=== PATIENT | female | born 1940 | race Caucasian/White ===

== ENCOUNTER → 2016-08-03 | Outpatient (CLI) | payer MEDICARE, BC | LOC: GMAL 14:18 | PROVIDERS: ATTEND Family Medicine | DX: R79.89 Other specified abnormal findings of blood chemistry (principal) ==

== ENCOUNTER → 2016-11-29 | Outpatient (CLI) | payer MEDICARE | END | disposition home or self-care (01) | LOC: GMAL 11:39 | PROVIDERS: ATTEND Family Medicine | DX: R79.89 Other specified abnormal findings of blood chemistry (principal) ==

== ENCOUNTER → 2016-12-12 | Outpatient (CLI) | payer MEDICARE, BC ==
--- NOTE | 2016-12-12 13:52 | MAM ---
EXAM DESCRIPTION: Screening Mammogram,Bilateral CLINICAL HISTORY: 76 years, Female, Screening mammogram COMPARISON: December 02, 2015 TECHNIQUE: CC and MLO digital mammograms with computer aided detection. FINDINGS: The breast parenchyma is heterogeneously dense which may decrease the sensitivity of mammography. There is no dominant mass nor any suspicious microcalcifications. Benign microcalcifications are present. IMPRESSION: BI-RADS 2: BENIGN FOLLOW-UP: Routine mammography screening. Electronically signed by: Mynor Seaman MD 12/12/2016 1:51 PM CDT
== END | disposition home or self-care (01) ==
LOC: MAMMO 10:51
PROVIDERS: ATTEND Family Medicine
DX: Z12.31 Encounter for screening mammogram for malignant neoplasm of breast (principal)

== ENCOUNTER → 2017-10-06 | Outpatient (CLI) | payer MEDICARE, BC ==
--- NOTE | 2017-10-08 12:43 | MRI ---
EXAM DESCRIPTION: Lumbar Spine w/o Contrast MRI. CLINICAL HISTORY: LOW BACK PAIN COMPARISON: MRI noncontrast lumbar spine February 07, 2012. TECHNIQUE: Multiplanar, multiple standard sequences, non contrast MRI, lumbar spine. FINDINGS: L5-S1: Disc desiccation and minimal disc space loss. Grade 1 anterolisthesis with posterior disc uncovered and 5 mm bulge not abutting the thecal sac or descending nerves. Moderate canal narrowing. Mild bilateral foraminal narrowing. Bilateral facet arthrosis and flavum ligament hypertrophy. L4-5: Anterior disc bulge and endplate ridging. Posterior disc complex bulge encroaching on the anterior thecal sac. Moderate to severe left neural foraminal narrowing and mild to moderate right neural foraminal narrowing. Diffuse Modic type II endplate reactive changes. Bilateral mild facet arthrosis and flavum ligament hypertrophy. Mild canal narrowing. L3-4: Severe disc desiccation and disc space loss. Diffuse Modic type II endplate reactive changes. Anterior bulging and endplate ridging more to the right of midline. Facet arthrosis and flavum ligament hypertrophy more on the right. Moderate right neural foraminal narrowing. Mild left neural foraminal narrowing. L2-3: Disc space almost absent. Minimal anterior disc remnant bulge with endplate ridging. Schmorl's nodes in the endplates. Minimal posterior endplate disc bulge. Diffuse Modic type III endplate reactive changes. Mild right foraminal narrowing and left foramen unremarkable. Mild canal narrowing. L1-2: Disc desiccation and minimal disc space loss. Tiny anterior bulge. Superior L2 endplate Schmorl's node versus old endplate depression. Posterior minimal facet arthrosis and flavum ligament hypertrophy. Tiny posterior disc bulge and mild canal narrowing. Bilateral foramina are patent. Minimal Modic type II endplate reactive changes. T12-L1: Moderate disc space loss and endplate erosion superior and inferior with Modic type II endplate reactive changes. Anterior disc bulge and endplate ridging. Posterior disc osteophyte complex bulge 4 to 5 mm in the midline and into the left foramen. Moderate to severe canal narrowing and mild right foraminal narrowing. Moderate left foraminal narrowing. Conus terminates just above this level. Paravertebral soft tissues paraspinal muscle atrophy. No soft tissue mass.. Chronic L1-L4 levoscoliosis. Normal marrow signal in the remaining vertebral bodies and the posterior elements. Vertebral bodies are not compressed at any level. IMPRESSION: 1. Chronic multilevel spondylosis disc desiccation and bulge, marginal osteophytes, canal and neural foraminal narrowing. Chronic levoscoliosis. 2. Moderate to severe left foraminal narrowing at L4-5 and mild to moderate right foraminal narrowing. Correlate for L4 radiculopathy. Progressed since the prior study. 3. Severe disc desiccation and disc space loss at L3-4. Moderate right foraminal narrowing. Correlate for right L3 radiculopathy. 4. disc space almost absent at L2-3. Diffuse advanced spondylosis. Progressed since the prior study. 5. Moderate spondylosis and posterior disc osteophyte complex bulge T12-L1 in the midline into the left foramen with moderate left paracentral canal narrowing. Progressed since the prior study. 6. Grade 1 anterolisthesis L5-S1 progressed since the prior study with moderate canal narrowing. Electronically signed by: Jus Angulo MD 10/08/2017 12:42 PM CDT
== END ==
LOC: MRI 10:00
PROVIDERS: ATTEND Family Medicine
DX: M47.896 Other spondylosis, lumbar region (principal); M41.86 Other forms of scoliosis, lumbar region; M43.16 Spondylolisthesis, lumbar region

== ENCOUNTER → 2018-01-09 | Outpatient (CLI) | payer MEDICARE, BC | LOC: GMAL 11:12 | PROVIDERS: ATTEND Family Medicine | DX: D51.3 Other dietary vitamin B12 deficiency anemia (principal); E55.9 Vitamin D deficiency, unspecified ==

== ENCOUNTER → 2018-05-21 | Outpatient (CLI) | payer MEDICARE, BC | LOC: GMAL 11:10 | PROVIDERS: ATTEND Family Medicine | DX: E03.9 Hypothyroidism, unspecified (principal) ==

== ENCOUNTER → 2018-05-28 | Outpatient (CLI) | payer MEDICARE, BC ==
--- NOTE | 2018-05-29 20:17 | MAM ---
EXAM DESCRIPTION: 3D Screening BILATERAL : Digital Mammography. CLINICAL HISTORY: 78 years Female SCREENING . No complaints. No personal or family history of breast cancer. Childbirth. Postmenopausal. Currently on HRT.. Lifetime risk of developing breast cancer (Tyrer-Cuzick model)(%): 2.4. COMPARISON: 2-D digital screening bilateral mammography 12/12/2016. TECHNIQUE: Bilateral CC and MLO projection full-field images, Digital tomosynthesis mammographic technique. Bilateral digital 2-D full-field MLO images. CAD not utilized. FINDINGS: The breast parenchymal density pattern is: Scattered areas of fibroglandular density. No skin thickening or nipple retraction. Bilateral solitary microcalcifications. Bilateral vascular calcifications. Focal asymmetry in the posterior third of the left breast slightly greater than 1 cm in diameter, approximately 4:00 position and approximately 9 cm from the nipple. Not associated with calcifications. Interpreted to be slightly larger than on the prior study.. No new focal, stellate mass or density, focal asymmetry , and no suspicious microcalcifications right breast. Taking into account, differences in mammographic technique. IMPRESSION: BI-RADS CATEGORY: 0 - INCOMPLETE- Need additional imaging evaluation. FOLLOW-UP: Recall for additional imaging: Targeted left breast ultrasound of the region of interest. Digital diagnostic mammography if indicated by ultrasound images.. Written communication concerning the IMPRESSION and Follow-up, will be mailed to the patient and referring health care provider. Electronically signed by: Jus Angulo MD 05/29/2018 8:16 PM CDT
== END ==
LOC: AMB 11:00
PROVIDERS: ATTEND Family Medicine
DX: Z12.31 Encounter for screening mammogram for malignant neoplasm of breast (principal)

== ENCOUNTER → 2018-06-07 | Outpatient (CLI) | payer MEDICARE, BC ==
--- NOTE | 2018-06-07 16:31 | US ---
EXAM DESCRIPTION: Breast,Left: Ultrasound CLINICAL HISTORY: 78 yearsFemaleABNORMAL MAMMOGRAM COMPARISON: Digital screening tomosynthesis bilateral breast 05/28/2018. TECHNIQUE: Transcutaneous scanning of the left breast utilizing kim-scale and Doppler modes. Scanning performed by the manager immunology and Dr. Angulo. FINDINGS: Scanning of the lower outer quadrant of the left breast. Mostly fatty echotexture with minimal fibroglandular tissue changes. Heterogeneous mass with cystic and solid components 9 cm from the nipple with minimal vascularity. Parallel orientation and mixed shadowing and enhancing posterior features. No definite calcifications. Differential includes lymph node, fibroadenoma, or old hematoma or scar. Follow-up diagnostic mammography was not performed. IMPRESSION: BI-RADS CATEGORY: 3 - PROBABLY BENIGN. Management: Short interval (6-month) diagnostic left breast digital mammography and targeted left breast ultrasound.. The FINDINGS and the FOLLOW-UP plan were reviewed in person with the patient after the examination. Written communication explaining the IMPRESSION and FOLLOW-UP will be mailed to the patient and referring care provider. Electronically signed by: Jus Angulo MD 06/07/2018 4:30 PM [facility]
== END ==
LOC: MAMMO 10:00
PROVIDERS: ATTEND Family Medicine
DX: R92.8 Other abnormal and inconclusive findings on diagnostic imaging of breast (principal)

== ENCOUNTER → 2018-08-09 | Outpatient (CLI) | payer MEDICARE, BC | LOC: GMAL 11:44 | PROVIDERS: ATTEND Family Medicine | DX: E03.9 Hypothyroidism, unspecified (principal) ==

== ENCOUNTER 2018-09-27 09:52 | Emergency (ER) | payer MEDICARE ==
[2018-09-27 10:09] VITALS: TEMP 98.4
[2018-09-27] MEDS ORDERED: PENICILLIN BENZATHINE 1.2 MU 1.2 MU/2 ML SYG IM ONE (10:16)
[2018-09-27] MEDS ORDERED: OSELTAMIVIR 75 MG CAP PO ONE (10:16)
--- NOTE | 2018-09-27 10:19 | ED.PDOC ---
History of Present Illness - General Chief Complaint: General Stated Complaint: cough, sore throat, headache Time Seen by Provider: 09/27/18 10:05 Source: patient Exam Limitations: no limitations - History of Present Illness Initial Comments: the patient states 8-year-old female presenting to the emergency room secondary to mild cough, runny nose, sore throat, low-grade fever, mild headache and body aches. Her tested positive for both strep and flu 2 days ago. He is on Tamiflu and has received treatment for strep. No shortness of breath. Vital signs appear stable. No evidence of any pharyngeal abscess at this time. The patient is pleasant and cooperative and in no distress. Timing/Duration: 24 hours Severity: mild Improving Factors: nothing Worsening Factors: nothing Associated Symptoms: cough, fever/chills, headaches, loss of appetite, malaise, nausea/vomiting Allergies/Adverse Reactions: Allergies NO KNOWN ALLERGY Allergy (Verified 03/27/13 12:42) Home Medications: Ambulatory Orders Cyanocobalamin [B-12] 3,000 mcg PO DAILY 01/14/14 Digoxin 0.25 mg PO DAILY 01/14/14 Estradiol 0.5 mg PO DAILY 01/14/14 HYDROcodone 5MG/APAP 325MG [Shaniko 5/325] 1 tab PO PRN 01/14/14 Levothyroxine Sodium 137 mcg PO DAILY 01/14/14 Meloxicam 15 mg PO DAILY 01/14/14 Metformin HCl 500 mg PO TID 01/14/14 Olmesartan Medoxomil-Hydrochlo [Benicar Hct 40-12.5 mg] 1 tab PO DAILY 01/14/14 [place]-3 Fatty Acids [Fish Oil 1200 mg] 1 cap PO DAILY 01/14/14 Simvastatin 80 mg PO DAILY 01/14/14 Vitamin D & K [D3 + K2 Dots 1000-90 Unit-Mcg] 1 tab PO DAILY 01/14/14 Warfarin Sodium 5 mg PO DAILY 01/14/14 Insulin Nph 0 units INJ DAILY 01/15/14 Insulin Regular (Human) [Humulin R] 100 unit IJ DAILY 01/15/14 Lisinopril & Hydrochlorothiazi [Lisinopril/Hctz 20-25 mg] 1 tab PO BID #0 01/22/14 Metoprolol Tartrate [Lopressor] 100 mg PO BID #60 tab 06/25/14 Oseltamivir Capsule [Tamiflu] 75 mg PO BID 5 Days #10 capsule 09/27/18 Review of Systems - Review of Systems Constitutional: States: fever, malaise EENTM: States: nose congestion, throat pain Respiratory: States: cough Cardiology: States: no symptoms reported Gastrointestinal/Abdominal: States: no symptoms reported Genitourinary: States: no symptoms reported Musculoskeletal: States: see HPI Skin: States: no symptoms reported Neurological: States: headache Endocrine: States: no symptoms reported All other Systems: No Change from Baseline Past Medical History (General) - Patient Medical History Hx Seizures: No Hx Stroke: No Hx Dementia: No Hx Asthma: No Hx of COPD: No Hx Cardiac Disorders: Yes - atrial fibrillation Hx Congestive Heart Failure: No Hx Pacemaker: No Hx Hypertension: Yes Hx Thyroid Disease: No Hx Diabetes: Yes Hx Gastroesophageal Reflux: Yes Hx Renal Disease: No Hx Cancer: No Hx of HIV: No Hx Hepatitis C: No Hx MRSA: No Surgical History: cholecystectomy, Hysterectomy - Vaccination History Hx Influenza Vaccination: Yes - 2017 Hx Pneumococcal Vaccination: Yes - 2017 - Social History Hx Tobacco Use: No Hx Alcohol Use: No Hx Substance Use: No Hx Substance Use Treatment: No Hx Depression: No Hx Physical Abuse: No Hx Emotional Abuse: No Family Medical History - Family History Mother Family History: No Known Physical Exam - Physical Exam General Appearance: Alert, Comfortable, No apparent distress Eye Exam: bilateral normal Ears, Nose, Throat: hearing grossly normal, nasal congestion, pharyngeal erythema Neck: full range of motion, supple Respiratory: lungs clear, normal breath sounds, no respiratory distress, no accessory muscle use Cardiovascular/Chest: normal peripheral pulses, regular rate, rhythm, no edema Peripheral Pulses: radial,right: 2+, radial,left: 2+ Gastrointestinal/Abdominal: non tender, soft Rectal Exam: deferred Back Exam: no CVA tenderness, no vertebral tenderness Extremity: non-tender, normal inspection, no pedal edema, normal capillary refill Neurologic: clinical medical transcriptionist II-XII nml as tested, alert, normal mood/affect, oriented x 3 Skin Exam: normal color Comments: Vital Signs - 24 hr 09/27/18 10:03 Temperature 98.4 F Pulse Rate [ 88 left brachial] Respiratory 24 Rate Blood Pressure 153/88 [left brachial] O2 Sat by Pulse 99 Oximetry Progress - Progress Progress: 09/27/18 10:18 the patient is 78-year-old female presenting with sore throat as well as symptoms of an upper respiratory tract infection. She has had significant exposure to both flu and strep being that her significant other just tested positive for both. She is going to be treated empirically with a shot of Bicillin LA and 5 days of Tamiflu. She needs to keep herself well hydrated. Motrin can be used to help reduce symptoms. ER warnings were given. Keep routine follow-up with primary care doctor otherwise. Departure - Departure Clinical Impression: Influenza, Strep throat Disposition: Discharge to Home or Self Care Condition: Fair Departure Forms: ED Discharge - Pt. Copy, Patient Portal Self Enrollment Instructions: Flu, Adult (DC), Sore Throat, Adult (DC) Diet: regular diet Activity: increase activity as tolerated Referrals: Ishaan Valencia III, MD [Primary Care Provider] - 1-2 Weeks Prescriptions: Oseltamivir Capsule [Tamiflu] 75 mg PO BID 5 Days #10 capsule Home Medications: Ambulatory Orders Cyanocobalamin [B-12] 3,000 mcg PO DAILY 01/14/14 Digoxin 0.25 mg PO DAILY 01/14/14 Estradiol 0.5 mg PO DAILY 01/14/14 HYDROcodone 5MG/APAP 325MG [Shaniko 5/325] 1 tab PO PRN 01/14/14 Levothyroxine Sodium 137 mcg PO DAILY 01/14/14 Meloxicam 15 mg PO DAILY 01/14/14 Metformin HCl 500 mg PO TID 01/14/14 Olmesartan Medoxomil-Hydrochlo [Benicar Hct 40-12.5 mg] 1 tab PO DAILY 01/14/14 [place]-3 Fatty Acids [Fish Oil 1200 mg] 1 cap PO DAILY 01/14/14 Simvastatin 80 mg PO DAILY 01/14/14 Vitamin D & K [D3 + K2 Dots 1000-90 Unit-Mcg] 1 tab PO DAILY 01/14/14 Warfarin Sodium 5 mg PO DAILY 01/14/14 Insulin Nph 0 units INJ DAILY 01/15/14 Insulin Regular (Human) [Humulin R] 100 unit IJ DAILY 01/15/14 Lisinopril & Hydrochlorothiazi [Lisinopril/Hctz 20-25 mg] 1 tab PO BID #0 01/22/14 Metoprolol Tartrate [Lopressor] 100 mg PO BID #60 tab 01/22/14 Oseltamivir Capsule [Tamiflu] 75 mg PO BID 5 Days #10 capsule 09/27/18 Additional Instructions: the patient is 78-year-old female presenting with sore throat as well as symptoms of an upper respiratory tract infection. She has had significant exposure to both flu and strep being that her significant other just tested positive for both. She is going to be treated empirically with a shot of Bicillin LA and 5 days of Tamiflu. She needs to keep herself well hydrated. Motrin can be used to help reduce symptoms. ER warnings were given. Keep routine follow-up with primary care doctor otherwise.
[2018-09-27] MEDS ORDERED: IBUPROFEN 200 MG TAB PO ONE (10:32)
[2018-09-27] MEDS ORDERED: IBUPROFEN 200 MG TAB ONE (10:32)
[2018-09-27] MEDS ORDERED: ONDANSETRON ODT 8 MG TAB ONE (10:35)
[2018-09-27] MEDS ORDERED: ONDANSETRON ODT 8 MG TAB SL ONE (10:38)
[2018-09-27 11:23] VITALS: BP 111/76; O2SAT 97
== END 2018-09-27 11:05 | disposition home or self-care (01) ==
LOC: ER 09:52
DX: J11.1 Influenza due to unidentified influenza virus with other respiratory manifestations (principal); J02.0 Streptococcal pharyngitis; I48.91 Unspecified atrial fibrillation; I10 Essential (primary) hypertension; E11.9 Type 2 diabetes mellitus without complications; K21.9 Gastro-esophageal reflux disease without esophagitis; Z79.4 Long term (current) use of insulin; Z79.899 Other long term (current) drug therapy; Z79.01 Long term (current) use of anticoagulants

== ENCOUNTER → 2018-12-12 | Outpatient (CLI) | payer MEDICARE ==
--- NOTE | 2018-12-13 18:03 | MAM ---
EXAM DESCRIPTION: 3D Diagnostic, Left (accession [id number]), Breast,Left (accession [id number]): Ultrasound CLINICAL HISTORY: 78 yearsFemaleABNORMAL MAMMOGRAM. Complex cyst lateral left breast. COMPARISON: Targeted left breast ultrasound 06/07/2018. Bilateral screening digital breast tomosynthesis 05/28/2018. TECHNIQUE: Left MLO projection full-field images, digital mammographic tomosynthesis technique. Left 2-D digital full-field MLO images. CAD not available. Transcutaneous scanning of the left breast utilizing kim-scale and Doppler modes. Scanning performed by the vp digital marketing social media and crm and Dr. Angulo. FINDINGS: The breast parenchymal density pattern is: Scattered areas of fibroglandular density. No skin thickening or nipple retraction solitary microcalcifications and vascular calcifications again noted. Also again seen is focal asymmetry at the 4:00 position approximately 9 cm from the nipple. Stable appearance since the prior study.. No new focal, stellate mass or density, focal asymmetry , and no suspicious microcalcifications left breast. Ultrasound: Scanning of the lower outer quadrant of the left breast from the nipple to 9 cm posterior. Make sure of fatty and fibroglandular tissues. 9 cm from the nipple is a complex multicystic structure with microlobulated margins and no vascularity. Wider than tall orientation and predominantly posterior acoustic enhancement with minimal posterior shadowing. Dimensions are 9.4 x 6.9 x 4.5 mm with no significant change in size or appearance since the prior study. IMPRESSION: Stable complex cyst or multi cystic cluster left breast. ASSESSMENT: BI-RADS CATEGORY: 3 - PROBABLY BENIGN. MANAGEMENT: Short interval (6-month) follow-up diagnostic left breast tomosynthesis images with targeted left breast ultrasound surveillance. Routine 12 month digital mammography.Of the right breast should be performed on the same visit. The FINDINGS and the FOLLOW-UP plan were reviewed in person with the patient after the examination. Written communication explaining the IMPRESSION and FOLLOW-UP will be mailed to the patient and referring care provider. Electronically signed by: Jus Angulo MD 12/13/2018 6:01 PM CDT
== END ==
LOC: MAMMO 14:17
PROVIDERS: ATTEND Family Medicine
DX: R92.8 Other abnormal and inconclusive findings on diagnostic imaging of breast (principal)
CPT/HCPCS: 76641; 77065; G0279

== ENCOUNTER → 2019-05-09 | Outpatient (CLI) | payer MEDICARE | LOC: GMAL 10:36 | PROVIDERS: ATTEND Family Medicine | DX: D51.3 Other dietary vitamin B12 deficiency anemia (principal); E03.9 Hypothyroidism, unspecified; E55.9 Vitamin D deficiency, unspecified; I10 Essential (primary) hypertension; E11.9 Type 2 diabetes mellitus without complications; E78.49 Other hyperlipidemia; I48.91 Unspecified atrial fibrillation ==

== ENCOUNTER → 2019-11-07 | Outpatient (CLI) | payer MEDICARE | LOC: GMAL 12:26 | PROVIDERS: ATTEND Family Medicine | DX: D51.3 Other dietary vitamin B12 deficiency anemia (principal); E03.9 Hypothyroidism, unspecified; E55.9 Vitamin D deficiency, unspecified; I10 Essential (primary) hypertension; E78.49 Other hyperlipidemia ==

== ENCOUNTER → 2020-02-18 | Outpatient (CLI) | payer MEDICARE | LOC: GMAL 10:46 | PROVIDERS: ATTEND Family Medicine | DX: D51.3 Other dietary vitamin B12 deficiency anemia (principal); E03.9 Hypothyroidism, unspecified; E55.9 Vitamin D deficiency, unspecified; E11.9 Type 2 diabetes mellitus without complications; E78.49 Other hyperlipidemia; I48.91 Unspecified atrial fibrillation; Z79.899 Other long term (current) drug therapy ==

== ENCOUNTER → 2020-05-05 | Outpatient (CLI) | payer MEDICARE | LOC: GMAL 12:02 | PROVIDERS: ATTEND Family Medicine | DX: D51.3 Other dietary vitamin B12 deficiency anemia (principal); Z79.899 Other long term (current) drug therapy; E55.9 Vitamin D deficiency, unspecified; E03.9 Hypothyroidism, unspecified; E11.9 Type 2 diabetes mellitus without complications; I48.91 Unspecified atrial fibrillation ==

== ENCOUNTER → 2020-08-10 | Outpatient (CLI) | payer MEDICARE ==
--- NOTE | 2020-08-10 13:18 | US ---
EXAM DESCRIPTION: Soft Tissue,Extremity: ULTRASOUND. CLINICAL HISTORY: 80 years Female NEOPLASM OF SKIN COMPARISON: None Available. TECHNIQUE: Transcutaneous scanning: Champagne-scale and Doppler modes. FINDINGS: Scanning right lateral proximal thigh. Complex area of subcutaneous hypoechoic solid tissues and partially cystic tissues with no vascularity. Dimensions approximately 7 x 3.5 x 6.6 cm. No large calcifications or shadowing. No distinct cysts. This mass displaces tissue planes posteriorly. IMPRESSION: Complex mass measuring 7 x 6.6 cm with cystic and solid components, but nonvascular. No large calcifications. Differential includes inflammatory and infectious causes, also malignancy. Tissue sampling is recommended. Electronically signed by: Jus Angulo MD 08/10/2020 1:17 PM [facility]
== END ==
LOC: US 07:54
PROVIDERS: ATTEND Family Medicine
DX: D48.5 Neoplasm of uncertain behavior of skin (principal)

== ENCOUNTER → 2020-09-21 | Outpatient (CLI) | payer MEDICARE | LOC: GMAL 10:54 | PROVIDERS: ATTEND Family Medicine | DX: E03.9 Hypothyroidism, unspecified (principal); I10 Essential (primary) hypertension; E11.9 Type 2 diabetes mellitus without complications; E78.49 Other hyperlipidemia ==

== ENCOUNTER 2020-09-25 05:31 | Day surgery (SDC) | payer MEDICARE ==
--- NOTE | 2020-09-11 15:21 | RAD ---
XR CHEST 2 VIEWS HISTORY: 80 years Female pre op COMPARISON: None. TECHNIQUE: 2 views of the chest. FINDINGS: Lungs: No focal consolidation, pleural effusion, or pneumothorax detected. Heart/Mediastinum: Heart size normal. Atherosclerotic changes are noted in the aorta. Bones: No acute abnormality detected. IMPRESSION: No evidence of an acute cardiopulmonary process. Electronically signed by: Gerry Salinas MD 09/11/2020 3:19 PM [employer]
[~2020-09-25 05:31] MED LIST: BUPIVACAINE 0.25% W/EPI 50 ML VIAL INJ ONE; BUPIVACAINE 0.5% 30 ML VIAL INJ ONE
[2020-09-25] MEDS ORDERED: SODIUM CHL 0.9% 100ML MINI-BAG 100 ML IVPB ONE (06:55)
[2020-09-25] MEDS ORDERED: ceFAZolin SODIUM 1 GM VIAL ONE (06:56)
[2020-09-25] MEDS ORDERED: LIDOCAINE 1% 10 ML VIAL INJ ONE (07:00)
[2020-09-25] MEDS ORDERED: ONDANSETRON INJ 4 MG/2 ML VIAL ONE (07:00)
[2020-09-25] MEDS ORDERED: PROPOFOL 200 MG/20 ML VIAL IV ONE (07:00)
[2020-09-25] MEDS ORDERED: METOCLOPRAMIDE HCL INJ 10 MG/2 ML VIAL ONE (07:00)
[2020-09-25] MEDS ORDERED: BUPIVACAINE 0.25% W/EPI 50 ML VIAL INJ ONE (08:05)
[2020-09-25] MEDS: LACTATED RINGERS 1,000 ML ONE (09:20)
[2020-09-25] MEDS ORDERED: fentaNYL CITRATE INJ 50 MCG/ML 2 ML AMP ONE (10:07)
[2020-09-25] MEDS ORDERED: MIDAZOLAM INJ 2 MG/2 ML VIAL ONE (10:14)
[2020-09-25] MEDS: LIDOCAINE 1% 50 ML VIAL INJ ONE (10:35)
[2020-09-25] MEDS: SODIUM BICARBONATE VIAL 50 MEQ/50 ML VIAL ONE (10:35)
[2020-09-25 11:34] VITALS: O2SAT 96
[2020-09-25] MEDS: HYDROcodone 10MG/APAP 325MG 1 EA TAB ONE (11:48)
[2020-09-25 12:37] VITALS: BP 121/76; TEMP 96.9
--- NOTE | 2020-09-25 13:39 | OP ---
DATE OF PROCEDURE: 09/25/20 PREOPERATIVE DIAGNOSIS: 1. Subcutaneous mass, right proximal thigh. POSTOPERATIVE DIAGNOSIS: 1. Subcutaneous mass, right proximal thigh with hemorrhage and necrosis. PROCEDURE: 1. Excision of subcutaneous mass, right thigh. SURGEON: Shon Moody MD SHIPFITTER HELPER: None. ANESTHESIA: Local infiltration of 1% lidocaine with bicarb and IV sedation by Anesthesia. INDICATION: The patient is a 80-year-old female who is on warfarin for atrial fibrillation. Sometime ago, she developed a mass in her right thigh which was mildly hemorrhagic appearing or ecchymotic appearing, but there was no known trauma. The mass failed to resolve despite a small amount of drainage from a sinus tract in the proximal portion of it. A radiologic workup was non- diagnostic, so she was brought to the Surgical Suite for excision of same after the risks, benefits and alternatives to the procedure were discussed and accepted. FINDINGS: The mass was approximately 6.5 to 7 cm in greatest diameter. It did have a necrotic appearing center with hemorrhagic appearance. A culture was taken of this. The sinus tract was also excised. PROCEDURE: After the patient was brought to the Surgical Suite and placed in the supine position, the right proximal thigh was prepped and draped. Surgical time-out was taken. Local infiltration of anesthesia was obtained along with IV sedation by Anesthesia. The incision was made which was diagonally along the length of the mass and an elliptical incision was made at the proximal portion of the incision to excise the sinus tract. Dissection was then carried down circumferentially, raising flaps medially and laterally. The flaps were quite thin on the superior aspect of the wound. When the mass was excised, hemostasis was obtained with [id number] suture of 3-0 Vicryl and electrocautery. The wound was irrigated copiously with saline. The subcutaneous tissue was reapproximated somewhat with interrupted 3-0 Vicryl subcuticular sutures. The skin edges were approximated with wide 3-0 Nylon vertical mattress sutures. A sterile pressure dressing was applied. The patient was then taken to the Recovery Room in stable condition. Estimated blood loss approximately 50 to 75 cc. All sponge, needle and instrument counts were correct. #[id number]
== END 2020-09-25 12:35 | disposition home or self-care (01) ==
LOC: AMB 05:31
PROVIDERS: ATTEND Surgery
DX: M79.89 Other specified soft tissue disorders (principal); R23.3 Spontaneous ecchymoses; E11.52 Type 2 diabetes mellitus with diabetic peripheral angiopathy with gangrene; I96 Gangrene, not elsewhere classified; K21.9 Gastro-esophageal reflux disease without esophagitis; I10 Essential (primary) hypertension; I48.91 Unspecified atrial fibrillation; Z85.850 Personal history of malignant neoplasm of thyroid; Z88.8 Allergy status to other drugs, medicaments and biological substances; Z96.653 Presence of artificial knee joint, bilateral; Z79.01 Long term (current) use of anticoagulants; Z79.4 Long term (current) use of insulin; Z79.899 Other long term (current) drug therapy
CPT/HCPCS: 00400; 27337; 36415; 36416; 71046; 80048; 81001; 82948; 85025; 85610; 87070; 87205; 88305; 88313; 93005; J0690; J2250; J2405; J2765; J3010; J3490; J7050; J7120